=== PATIENT | female | born 1985 | race Caucasian/White ===

== ENCOUNTER 2024-04-29 18:58 | Emergency (ER) | payer SELFPAY ==
[~2024-04-29] VITALS: Ht 149.9 cm; Wt 63.6 kg
[2024-04-29 19:05] VITALS: BP 144/88; PULSE 101; RESP 18; TEMP 98.5; O2SAT 100
== END 2024-04-29 22:33 | disposition left against medical advice (07) ==
LOC: ER 18:58
DX: M79.622 Pain in left upper arm (principal); Z98.890 Other specified postprocedural states
CPT/HCPCS: 99281